=== PATIENT | female | born 1995 | race Hispanic/Latino ===

== ENCOUNTER 2018-08-25 16:17 | Inpatient (IN) ==
[2018-08-25 16:32] LABS: URINE SOURCE VOIDED
[2018-08-25 16:42] LABS: BILIRUBIN URINE NEGATIVE (NEGATIVE); BLOOD URINE NEGATIVE (NEGATIVE); CLARITY CLEAR (CLEAR); COLOR YELLOW; GLUCOSE URINE NEGATIVE (NEGATIVE); KETONE URINE NEGATIVE (NEGATIVE); LEUKOCYTES URINE 2+ (NEGATIVE); NITRITE URINE NEGATIVE (NEGATIVE); PROTEIN URINE 1+(30 mg/dL) mg/dL (NEGATIVE); UROBILINOGEN URINE NORMAL
[2018-08-25] MEDS ORDERED: PEPCID IV PRN (17:53)
[2018-08-25] MEDS ORDERED: KEFZOL 1 GM/D5W 1 GM/50 ML IVPB IV PRN (17:53)
[2018-08-25] MEDS ORDERED: TYLENOL PO PRN (17:53)
[2018-08-25] MEDS ORDERED: REGLAN PO ONE (17:53)
[2018-08-25] MEDS ORDERED: ZOFRAN IV PRN (17:53)
[2018-08-25] MEDS ORDERED: PEPCID PO ONE (17:53)
[2018-08-25] MEDS ORDERED: STADOL IV PRN (17:53)
[2018-08-25] MEDS ORDERED: MAALOX PLUS LIQUID PO ONE (18:00)
[2018-08-25] MEDS ORDERED: SODIUM CHLORIDE 0.9% INJ SCH (18:00)
[2018-08-25 18:35] LABS: UR AMPHETAMINES QUAL NONE DETECTED (NONE DETECT); UR BARBITUATES QUAL NONE DETECTED (NONE DETECT); UR BENZODIAZEPIN QUAL NONE DETECTED (NONE DETECT); UR CANNABINOIDS QUAL NONE DETECTED (NONE DETECT); UR COCAINE QUAL NONE DETECTED (NONE DETECT); UR METHADONE QUAL NONE DETECTED (NONE DETECT); UR METHAMPHETAMINE QUAL NONE DETECTED (NONE DETECT); UR OPIATES QUAL NONE DETECTED (NONE DETECT); UR OXYCODONE QUAL NONE DETECTED (NONE DETECT); UR PCP QUAL NONE DETECTED (NONE DETECT); UR PROPOXYPHENE QUAL NONE DETECTED (NONE DETECT); UR TCA QUAL NONE DETECTED (NONE DETECT)
[2018-08-25] MEDS: LR 1,000 ML IV SCH ×2 (18:36→23:29)
--- NOTE | 2018-08-25 18:49 | HISTORY AND PHYSICAL ---
HISTORY OF PRESENT ILLNESS: This is a 23-year-old at 39 weeks 2 days who presents with a chief complaint of intermittent contractions. The patient states she has noted irregular contractions since 7 a.m. this morning; however, at 3 p.m. she noted that they became more frequent and more severe. The patient mentions that she also noted clear fluid leaking from the vagina at 3:30 a.m. She denies any vaginal bleeding. She endorses good movement. OBSTETRICS HISTORY: G1: Normal spontaneous vaginal delivery at 40 weeks. The patient had an 8-pound 4-ounce female in 2012, delivered at [place]. G2: Current , no complications. States this fetus feels smaller. PAST MEDICAL HISTORY: Denies. SURGICAL HISTORY: Removal of arm cyst FAMILY HISTORY: Maternal grandmother has a history of hypertension and diabetes. Maternal grandfather has history of an enlarged heart. SOCIAL HISTORY: The patient denies tobacco, alcohol and illicit drug use. Father of baby is involved in this . She lives at home with father of baby and first child. 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 ALLERGIES: Denies. MEDICATIONS: vitamins, Tums, Tylenol. REVIEW OF SYSTEMS: GEN: Denies fevers, chills Heart: Denies chest pain Pulmonary: Denies shortness of breath leg pain, Abdomen: Endorses abdominal pain, nausea, vomiting, diarrhea, constipation Pelvic: Endorses LOF, denies vaginal bleeding leg edema : Denies dysuria. PHYSICAL EXAMINATION: VITAL SIGNS: T 98.9 BP 133/81 HR 94 RR 18 O2 96% GENERAL: No acute distress. Alert, cooperative. HEENT: Head atraumatic and normocephalic. HEART: Regular rate and rhythm. No murmurs, rubs, gallops or clicks. LUNGS: Clear to auscultation bilaterally. No adventitious breath sounds. ABDOMEN: Gravid with normal striae. Normoactive bowel sounds. Abdomen soft and nontender to palpation. Rolly: 3600 g. PELVIS: Normal external genitalia. Cervical exam 2/50%/-2. EXTREMITIES: Trace edema, no cyanosis or edema. labs: O positive, antibody negative, rubella immune, VDRL nonreactive, hepatitis B antigen nonreactive, HIV negative, gonorrhea negative, chlamydia negative, quad screen negative. GBS negative. Glucose screen 137, 1 hour. Hemoglobin and hematocrit 11.1 and 34.9. DIAGNOSTIC DATA: Ultrasound imaging anatomy scan at 21 weeks showed an anterior placenta, female genitalia and normal anatomy. ASSESSMENT: This is a 23-year-old , who presents with spontaneous rupture of membranes and latent labor, GBS negative. PLAN: -Admit to labor and delivery for augmentation of labor with Pitocin, following the unit protocol. -The patient desires epidural for pain management. We will administer at time requested. -Monitor for signs of chorioamnionitis. -Hemoglobin and hematocrit are pending. -Consent for procedure and section in case of emergency signed. - The patient desires tubal ligation for control. Consents for tubal ligation also confirmed and signed > 30 days ago. cc: Iris Burgess MD MTDD
[2018-08-25 18:52] LABS: BASO# 0.02 X1000 (0.0-0.2); BASO% 0.2 % (0.0-0.8); EOS# 0.05 X1000 (0.0-0.7); EOS% 0.5 % (0.0-10.0); HEMATOCRIT 35.1 % (37.0-47.0); HEMOGLOBIN 11.4 g/dL (12.0-16.0); IMM GRAN# 0.07 X1000 (0.0-0.04); IMM GRAN% 0.7 % (0.0-0.5); LYMPH# 1.71 X1000 (1.2-3.4); LYMPH% 18.2 % (20.5-51.1); MCH 23.3 PG (27-31); MCHC 32.5 g/dL (33-37); MCV 71.6 FL (81-99); MONO# 0.98 X1000 (0.11-0.59); MONO% 10.4 % (1.7-9.3); MPV 11.1 FL (7.4-10.4); NEUT# 6.58 X1000 (1.4-6.5); PLT 308 X1000 (130-400); RDW 15.3 % (11.5-14.5); WBC 9.41 X1000 (4.8-10.8)
[2018-08-25] MEDS ORDERED: PITOCIN 30 UNITS/NS 30 UNIT/500 ML IV.SOLN IV SCH (19:00)
[2018-08-25 19:09] LABS: HYPOCHROM 1+; LARGE PLATELETS OCCASIONAL; LYMPHS 26 % (21-51); MICROCYTOSIS 1+; MONO 11 % (1-9); SEGS 62 % (42-75)
[2018-08-25] MEDS ORDERED: XYLOCAINE-MPF 1% INJ ONE (19:27)
[2018-08-25] MEDS ORDERED: MINERAL OIL MISC ONE (19:27)
[2018-08-25] MEDS ORDERED: FENTANYL-BUPIV-NS 2 MCG-0.1% 200 ML EPIDURAL SCH (20:00)
[2018-08-25] MEDS ORDERED: NAROPIN 0.2% INJ ONE (20:00)
--- NOTE | 2018-08-26 05:26 | OB/GYN PROGRESS NOTE ---
Progress Note OB - . Patient Problems: Current Active Problems Problem Status Onset Rupture of membranes with clear amniotic fluid Acute Intrauterine Acute OB Progress Note: Vital Signs - 24 hr 08/25/18 16:52 08/25/18 19:52 08/25/18 23:31 Temperature 98.9 F 98.2 F 97.5 F L Pulse Rate 85 94 H 98 H Respiratory Rate 20 18 18 Blood Pressure 134/78 140/70 122/62 O2 Sat by Pulse Oximetry 97 Laboratory Results - last 24 hr 08/25/18 08/25/18 08/25/18 16:20 16:20 16:35 WBC RBC Hgb Hct MCV MCH MCHC RDW Std Deviation Plt Count MPV Immature Gran % (Auto) Neut % (Auto) Lymph % (Auto) [place] % (Auto) Eos % (Auto) Baso % (Auto) Immature Gran # (Auto) Neut # (Auto) Lymph # (Auto) [place] # (Auto) Eos # (Auto) Baso # (Auto) Segmented Neutrophils Lymphocytes Monocytes Atypical Lymphocytes Hypochromia Large Platelets Microcytosis Glucose Urine Source VOIDED Urine Color YELLOW Urine Clarity CLEAR Urine pH 7.0 Ur Specific [place] 1.010 Urine Protein 1+(30 mg/dL) A Urine Ketones NEGATIVE Urine Blood NEGATIVE Urine Nitrite NEGATIVE Urine Bilirubin NEGATIVE Urine Urobilinogen NORMAL Urine WBC 2+ A Urine Glucose NEGATIVE Membranes Rupture POSITIVE Urine Opiates Screen NONE DETECTED Ur Oxycodone Screen NONE DETECTED Urine Methadone Screen NONE DETECTED U Propoxyphene Qual NONE DETECTED Ur Barbituates Screen NONE DETECTED Ur Tricyclics Screen NONE DETECTED Ur Phencyclidine Scrn NONE DETECTED Ur Amphetamines Screen NONE DETECTED U Methamphetamines Scrn NONE DETECTED U Benzodiazepines Scrn NONE DETECTED Urine Cocaine Screen NONE DETECTED U Cannabinoids Screen NONE DETECTED RPR 08/25/18 08/25/18 08/25/18 18:30 18:30 18:30 WBC 9.41 RBC 4.90 Hgb 11.4 L Hct 35.1 L MCV 71.6 L MCH 23.3 L MCHC 32.5 L RDW Std Deviation 15.3 H Plt Count 308 MPV 11.1 H Immature Gran % (Auto) 0.7 H Neut % (Auto) 70.0 Lymph % (Auto) 18.2 L Cascade % (Auto) 10.4 H Eos % (Auto) 0.5 Baso % (Auto) 0.2 Immature Gran # (Auto) 0.07 H Neut # (Auto) 6.58 H Lymph # (Auto) 1.71 C[place] # (Auto) 0.98 H Eos # (Auto) 0.05 Baso # (Auto) 0.02 Segmented Neutrophils 62 Lymphocytes 26 Monocytes 11 H Atypical Lymphocytes 1.0 Hypochromia 1+ Large Platelets OCCASIONAL Microcytosis 1+ Glucose 67 L Urine Source Urine Color Urine Clarity Urine pH Ur Specific [place] Urine Protein Urine Ketones Urine Blood Urine Nitrite Urine Bilirubin Urine Urobilinogen Urine WBC Urine Glucose Membranes Rupture Urine Opiates Screen Ur Oxycodone Screen Urine Methadone Screen U Propoxyphene Qual Ur Barbituates Screen Ur Tricyclics Screen Ur Phencyclidine Scrn Ur Amphetamines Screen U Methamphetamines Scrn U Benzodiazepines Scrn Urine Cocaine Screen U Cannabinoids Screen RPR NON-REACTIVE LABOR PROGRESS NOTE HPI: 23yo at 39w4d s/p SROM who presented in latent labor, GBS negative Patient c/o more pressure. States her pain is still well controlled; however, she is now able to move her legs. VS as above GEN: Alert, NAD, cooperative Pelvic exam 0445: 6/80/-2 FHT: [id number], +accelerations, no decelerations TOCO: q1-2min Assessment: 23yo at 39w4d s/p SROM in active labor - Category I FHT - Continue monitoring for signs of chorioamnionitis - S/p epidural, pain well controlled - Anticipate vaginal delivery
[2018-08-26] MEDS ORDERED: AMPICILLIN 2 GM/NS 2 GM/100 ML IVPB ONE (07:24)
[2018-08-26] MEDS ORDERED: AMPICILLIN 2 GM/NS 2 GM/100 ML IVPB IV ONE (07:30)
[2018-08-26] MEDS: LR 1,000 ML IV SCH (08:06)
[2018-08-26] MEDS ORDERED: MINERAL OIL PO PRN (10:55)
[2018-08-26] MEDS ORDERED: M-M-R II VACCINE SUBQ ONE (10:55)
[2018-08-26] MEDS ORDERED: AMBIEN PO PRN (10:55)
[2018-08-26] MEDS ORDERED: BENADRYL IV PRN (10:55)
[2018-08-26] MEDS ORDERED: HYDROXYZINE IM PRN (10:55)
[2018-08-26] MEDS ORDERED: XYLOCAINE-MPF 1% INJ PRN (10:55)
[2018-08-26] MEDS ORDERED: BOOSTRIX VACCINE IM ONE (10:55)
[2018-08-26] MEDS ORDERED: PERI MEDS (DERMOPLAST/NUPERCAINAL/TUCKS) MISC PRN (10:55)
[2018-08-26] MEDS ORDERED: BENADRYL PO PRN (10:55)
[2018-08-26] MEDS ORDERED: NORCO-5 PO PRN (10:55)
[2018-08-26] MEDS ORDERED: CYTOTEC PO PRN (10:55)
[2018-08-26] MEDS ORDERED: PITOCIN IM PRN (10:55)
[2018-08-26] MEDS ORDERED: ATARAX PO PRN (10:55)
[2018-08-26] MEDS ORDERED: PITOCIN 20 UNITS/NS 20 UNITS/1,000 ML IV.SOLN IV SCH (11:00)
[2018-08-26] MEDS ORDERED: PITOCIN 30 UNITS/NS 30 UNIT/500 ML IV.SOLN IV SCH (11:00)
[2018-08-26] MEDS ORDERED: PITOCIN 20 UNITS/NS 20 UNITS/1,000 ML IV.SOLN ONE (11:28)
[2018-08-26] MEDS ORDERED: AMPICILLIN 1 GM/NS 1 GM/50 ML IVPB IV SCH (11:30)
--- NOTE | 2018-08-26 11:36 | OPERATIVE NOTE ---
PROCEDURE DATE: 08/26/2018 DESCRIPTION OF DELIVERY: The patient progressed to complete and pushing, had spontaneous delivery of a female , 8 pounds 11 ounces, with Apgars of 8 and 10 at 10:33 on 08/26/2018 over intact perineum. Placenta was delivered intact with 3 vessel cord with some manual assistance. ESTIMATED BLOOD LOSS: 150 mL. ANESTHESIA: Epidural. COUNTS: All counts were correct x2. cc: MD Iris Atkinson III, MD
[2018-08-26] MEDS: MOTRIN PO PRN (15:11)
[2018-08-26] MEDS: NORCO-10 PO PRN (15:11)
[2018-08-26] MEDS: PERICOLACE PO SCH (20:24)
[2018-08-27] MEDS: PEPCID PO PRN (04:00)
[2018-08-27] MEDS: MOTRIN PO PRN ×2 (04:00→22:05)
[2018-08-27 06:21] LABS: BASO# 0.01 X1000 (0.0-0.2); BASO% 0.1 % (0.0-0.8); HEMATOCRIT 24.4 % (37.0-47.0); HEMOGLOBIN 7.7 g/dL (12.0-16.0); IMM GRAN# 0.04 X1000 (0.0-0.04); IMM GRAN% 0.4 % (0.0-0.5); LYMPH# 1.64 X1000 (1.2-3.4); LYMPH% 15.9 % (20.5-51.1); MCH 23.1 PG (27-31); MCHC 31.6 g/dL (33-37); MCV 73.3 FL (81-99); MONO# 0.99 X1000 (0.11-0.59); MONO% 9.6 % (1.7-9.3); MPV 10.7 FL (7.4-10.4); NEUT# 7.56 X1000 (1.4-6.5); PLT 266 X1000 (130-400); RBC 3.33 XMIL (4.2-5.4); RDW 15.3 % (11.5-14.5); WBC 10.34 X1000 (4.8-10.8)
[2018-08-27 06:41] LABS: LYMPHS 16 % (21-51); MICROCYTOSIS 1+; MONO 4 % (1-9); SEGS 80 % (42-75)
[2018-08-27] MEDS: FERROUS SULFATE PO SCH (08:40)
[2018-08-27] MEDS: PRECARE PO SCH (08:40)
[2018-08-27] MEDS: PERICOLACE PO SCH (21:04)
[2018-08-27] MEDS: NORCO-10 PO PRN (22:05)
[2018-08-28] MEDS: PEPCID PO PRN (00:43)
[2018-08-28 08:16] VITALS: BP 106/52
[2018-08-28] MEDS: PRECARE PO SCH (08:58)
[2018-08-28] MEDS: FERROUS SULFATE PO SCH (08:58)
--- NOTE | 2018-08-28 11:31 | OB/GYN PROGRESS NOTE ---
Progress Note OB - . Patient Problems: Current Active Problems Problem Status Onset Intrauterine Acute Rupture of membranes with clear amniotic fluid Acute OB Progress Note: Vital Signs - 24 hr 08/27/18 15:34 08/27/18 22:03 08/28/18 07:45 Temperature 97.6 F 97.6 F 97.5 F L Pulse Rate 81 82 75 Respiratory Rate 18 18 16 Blood Pressure 139/63 107/58 106/52 O2 Sat by Pulse Oximetry 100 100 98 S. Patient resting in bed. She is ambulating, eating, urinating well. She has light lochia and her pain is well controlled. O. Vitals WNL Chest: CTAB Heart: RRR Abdomen: Soft, uterine fundus below the umbilicus. Ext: LE nontender, no edema B/L A/P 23yo s/p , patient doing well. Discharge instructions given. D/C home today.
[2018-08-28] MEDS ORDERED: FLU VACCINE IM ONE (12:00)
--- NOTE | 2018-08-28 21:56 | DISCHARGE SUMMARY ---
ADMISSION DATE: 08/25/2018 DISCHARGE DATE: 08/28/2018 ADMITTING DIAGNOSIS: Intrauterine at term, spontaneous labor. DISCHARGE DIAGNOSIS: 1. Intrauterine at term, spontaneous labor. 2. Augmentation. 3. Status post spontaneous vaginal delivery. HISTORY: Patient is a 23-year-old G2, P2-0-0-2 who presented at 39 and 2 in prodromal labor. She was augmented and delivered a female 8 pounds 11 ounces. Apgars of 8 and 10 at 1 and 5 minutes respectively. She had epidural anesthesia. The patient did well . She was ambulating well. Pain was well controlled on medicine. She was breast and bottle-feeding and urinating well by day 2 . It was felt that she was stable and ready for discharge. DISCHARGE DISPOSITION: To home. The patient will be sent with a prescription for iron and pain medicines. She is also supposed to follow up with Dr. Bustamante in 1 week. cc: DO Iris Ritter MD
== END 2018-08-28 13:05 | disposition home or self-care (01) | DRG 807 ==
LOC: P.OPLD 16:17 → P.LD 16:20
PROVIDERS: ADMIT Student in an Organized Health Care Education/Training Program; ATTEND Student in an Organized Health Care Education/Training Program
CPT/HCPCS: 59025; 80104; 80301; 80305; 81003; 82947; 84112; 85025; 86592; 90686; A9270; G0431; G0434; G0477; J0290; J2405; J2590; J7120